=== PATIENT | male | born 1980 | race Two or more races ===

== ENCOUNTER → 2024-03-06 | Outpatient (BNVA) | payer MEDICAID, SELFPAY | END | disposition home or self-care (01) | PROVIDERS: PCP Nurse Practitioner Primary Care; Referring Provider Nurse Practitioner Primary Care; Visit Provider Nurse Practitioner Primary Care | DX: S61.210A Laceration without foreign body of right index finger without damage to nail, initial encounter (principal); Z76.89 Persons encountering health services in other specified circumstances; Z23 Encounter for immunization | CPT/HCPCS: 90471; 90715; 99205 ==

== ENCOUNTER → 2024-03-14 | Outpatient (BNVA) | payer MEDICAID, SELFPAY | END | disposition home or self-care (01) | PROVIDERS: PCP Nurse Practitioner Primary Care; Referring Provider Nurse Practitioner Primary Care; Visit Provider Nurse Practitioner Primary Care | DX: Z00.01 Encounter for general adult medical examination with abnormal findings (principal); I10 Essential (primary) hypertension; R06.00 Dyspnea, unspecified; Z11.3 Encounter for screening for infections with a predominantly sexual mode of transmission; Z71.3 Dietary counseling and surveillance; Z13.1 Encounter for screening for diabetes mellitus; Z13.220 Encounter for screening for lipoid disorders; E66.01 Morbid (severe) obesity due to excess calories; Z68.35 Body mass index [BMI] 35.0-35.9, adult; T14.8XXA Other injury of unspecified body region, initial encounter; Z13.29 Encounter for screening for other suspected endocrine disorder | CPT/HCPCS: 99215 ==

== ENCOUNTER → 2024-05-05 | Outpatient (BNVA) | payer MEDICAID, SELFPAY | END | disposition home or self-care (01) | PROVIDERS: PCP Nurse Practitioner Primary Care; Referring Provider Nurse Practitioner Primary Care; Visit Provider Nurse Practitioner Family | DX: J10.1 Influenza due to other identified influenza virus with other respiratory manifestations (principal) | CPT/HCPCS: 87804; 87811; 99213 ==

== ENCOUNTER → 2024-10-06 | Outpatient (BNVA) | payer MEDICAID, SELFPAY | END | disposition home or self-care (01) | PROVIDERS: PCP Nurse Practitioner Primary Care; Referring Provider Nurse Practitioner Primary Care; Visit Provider Nurse Practitioner Primary Care | DX: I10 Essential (primary) hypertension (principal); N52.9 Male erectile dysfunction, unspecified | CPT/HCPCS: 99213 ==

== ENCOUNTER → 2024-10-24 | Outpatient (BNVA) | payer MEDICAID, SELFPAY | END | disposition home or self-care (01) | PROVIDERS: PCP Nurse Practitioner Primary Care; Referring Provider Nurse Practitioner Primary Care; Visit Provider Nurse Practitioner Primary Care | DX: N52.2 Drug-induced erectile dysfunction (principal); I10 Essential (primary) hypertension | CPT/HCPCS: 99213 ==